=== PATIENT | female | born 1950 | race Caucasian/White ===

== ENCOUNTER 2018-10-04 06:55 | Day surgery (SDC) | payer OTHER ==
[~2018-10-04 06:55] MED LIST: CRESTOR40 MG PO; FOSAMAX70 MG PO; POTASSIUM CITR15 MEQ PO; VITAMIN D32000 UNI1 PO; VITAMIN E400 UNI6 PO; ZANTAC300 MG PO
[2018-10-04] MEDS ORDERED: PERCOCET 5-3251 EACH PO (10:01)
== END 2018-10-04 12:50 | disposition home or self-care (01) ==
LOC: CIR.AMB 06:55
DX: D35.1 Benign neoplasm of parathyroid gland (principal)